=== PATIENT | male | born 1995 | race Native Hawaiian/Other Pacific Islander ===

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

== ENCOUNTER → 2018-01-12 | Outpatient (CLI) | payer OTHER ==
--- NOTE | 2018-01-12 14:12 | XR ---
EXAMINATION TYPE: XR foot limited LT DATE OF EXAM: 01/12/2018 CLINICAL HISTORY: pain;osteomyelitis great toe TECHNIQUE: Frontal, lateral and oblique images of the left foot are obtained. COMPARISON: 02/07/2017. FINDINGS: There is no acute fracture/dislocation evident. The joint spaces appear within normal galvez its. No osseous destruction noted. Soft tissue swelling great toe. IMPRESSION: No radiographic evidence to suggest osteomyelitis at this time. ICD 10 NO FRACTURE, INITIAL EVALUATION
== END | disposition home or self-care (01) ==
LOC: RADXRMAIN 13:41
PROVIDERS: ATTEND Podiatrist
DX: M86.9 Osteomyelitis, unspecified (principal)

== ENCOUNTER 2019-03-10 15:27 | Emergency (ER) | payer OTHER ==
[2019-03-10] MEDS ORDERED: KETOROLAC 30 MG/ML 1 ML VIAL IVP STA (16:27)
[2019-03-10] MEDS ORDERED: SODIUM CHLORIDE 0.9% 1,000 ML IV STA (16:27)
[2019-03-10 17:06] LABS: Appearance,Urine Clear (Clear); Bilirubin,Urine Negative (Negative); Blood,Urine Negative (Negative); Color,Urine Yellow; Glucose,Urine (UA) 4+ (Negative); Ketones,Urine Trace (Negative); Leukocyte Esterase,Urine Negative (Negative); Mucus,Urine Rare /hpf; Nitrite,Urine Negative (Negative); PH, Urine 5.5 (5.0-8.0); Protein,Urine 1+ (Negative); RBC,Urine 1 /hpf (0-5); Squamous Epithelial Cell,Urine <1 /hpf (0-4); Urobilinogen,Urine <2.0 mg/dL (<2.0); WBC,Urine 1 /hpf (0-5)
[2019-03-10 17:11] LABS: ALT 147 U/L (4-49); AST 85 U/L (17-59); African American GFR (CKD) >90 (>60 ml/min/1.73 sqM); Albumin 4.7 g/dL (3.5-5.0); Alkaline Phosphatase 88 U/L (38-126); Amylase 60 U/L (30-110); Anion Gap 10 mmol/L; Blood Urea Nitrogen 12 mg/dL (9-20); Calcium 9.9 mg/dL (8.4-10.2); Carbon Dioxide 22 mmol/L (22-30); Chloride 105 mmol/L (98-107); Glucose 202 mg/dL (74-99); Non-African American GFR(CKD) >90 (>60 ml/min/1.73 sqM); Potassium 4.3 mmol/L (3.5-5.1); Sodium 137 mmol/L (137-145); Total Bilirubin 0.7 mg/dL (0.2-1.3); Total Protein 8.2 g/dL (6.3-8.2)
[2019-03-10 17:17] LABS: Specific Gravity,Urine 1.048 (1.001-1.035)
[2019-03-10 17:40] LABS: Basophils # (A) 0.1 k/uL (0-0.2); Basophils % (A) 1 %; Eosinophils # (A) 0.1 k/uL (0-0.7); Eosinophils % (A) 1 %; HCT 49.1 % (39.0-53.0); HGB 16.7 gm/dL (13.0-17.5); Lymphocytes # (A) 2.5 k/uL (1.0-4.8); Lymphocytes % (A) 26 %; MCH 29.2 pg (25.0-35.0); MCHC 34.1 g/dL (31.0-37.0); MCV 85.8 fL (80.0-100.0); Mean Platelet Volume 7.9; Monocytes # (A) 0.5 k/uL (0-1.0); Monocytes % (A) 5 %; Neutrophils # (A) 6.2 k/uL (1.3-7.7); Neutrophils % (A) 65 %; Platelet Count 290 k/uL (150-450); RBC 5.72 m/uL (4.30-5.90); RDW 12.6 % (11.5-15.5); WBC 9.5 k/uL (3.8-10.6)
--- NOTE | 2019-03-10 18:38 | CT ---
EXAMINATION TYPE: CT abdomen pelvis w con DATE OF EXAM: 03/10/2019 COMPARISON: 12/07/2016 HISTORY: Pt bent over earlier today and felt a pain RLQ, pain increased since CT DLP: 2432 mGycm Automated exposure control for dose reduction was used. CONTRAST: Performed with IV Contrast, patient injected with 100 mL of Isovue 300. Lung bases are clear of infiltrate. There is no pleural effusion. Heart size is normal. There is diffuse fatty infiltration of the liver. Gallbladder appears normal. Spleen appears normal. There is no pancreatic mass. Stomach is intact. There is no adrenal mass. Kidneys show satisfactory contrast opacification. There is no hydronephrosi s. There is tiny appendicolith. Appendix is not dilated. There is no retroperitoneal adenopathy. Bladder distends smoothly. There is no inguinal hernia. There is no free fluid in the pelvis. There i s no mesenteric edema. There is no ascites or free air. There is no sign of a bowel obstruction. Ther e are scattered small pericecal multiple lymph nodes. Lumbar spine is intact. There is no compression fracture. Bony pelvis is intact. There is no evidence of hip dysplasia. IMPRESSION: Fatty infiltration of the liver. No focal liver defect. There is clearing of the large posterior liver lesion compared to old exam. No sign of appendicitis.
--- NOTE | 2019-03-10 18:45 | ED ---
General Adult HPI - General Chief complaint: Abdominal Pain Stated complaint: Abd pain Time Seen by Provider: 03/10/19 16:19 Source: patient, RN notes reviewed Mode of arrival: ambulatory Limitations: no limitations - History of Present Illness Initial comments: 23-year-old male with a past medical history of diabetes, anxiety, migraines presents to the emergency department for a chief complaint of right lower quadrant pain. Patient has had right lower quadrant abdominal pain since this morning. States that when he bent down to pick something up at work.patient denies nausea vomiting diarrhea. Denies fevers or chills. Patient is concerned he may have appendicitis. Patient denies any alleviating or aggravating factors that he has noticed. Patient denies noticing any bulges along his groin.Patient has no other complaints at this time including shortness of breath, chest pain, abdominal pain, nausea or vomiting, headache, or visual changes. - Related Data Home Medications Medication Instructions Recorded Confirmed FLUoxetine HCL [PROzac] 20 mg PO DAILY 10/11/16 10/11/16 Ibuprofen [Motrin] 800 mg PO TID 10/11/16 10/11/16 Ondansetron HCl [Zofran] 8 mg PO Q8H PRN 10/11/16 10/11/16 Allergies Allergy/AdvReac Type Severity Reaction Status Date / Time No Known Allergies Allergy Verified 10/11/16 14:14 Review of Systems ROS Statement: Those systems with pertinent positive or pertinent negative responses have been documented in the HPI. ROS Other: All systems not noted in ROS Statement are negative. Past Medical History Past Medical History: Diabetes Mellitus Additional Past Medical History / Comment(s): migraines History of Any Multi-Drug Resistant Organisms: None Reported Past Surgical History: No Surgical Hx Reported Past Anesthesia/Blood Transfusion Reactions: No Reported Reaction Past Psychological History: Anxiety Smoking Status: Current every day smoker Past Alcohol Use History: Occasional Past Drug Use History: None Reported - Past Family History Father Family Medical History: No Reported History Mother Family Medical History: No Reported History General Exam Limitations: no limitations General appearance: alert, in no apparent distress Head exam: Present: atraumatic, normocephalic, normal inspection Eye exam: Present: normal appearance, PERRL, EOMI. Absent: scleral icterus, conjunctival injection, periorbital swelling ENT exam: Present: normal exam, mucous membranes moist Neck exam: Present: normal inspection, full ROM. Absent: tenderness, meningismus, lymphadenopathy Respiratory exam: Present: normal lung sounds bilaterally. Absent: respiratory distress, wheezes, rales, rhonchi, stridor Cardiovascular Exam: Present: regular rate, normal rhythm, normal heart sounds. Absent: systolic murmur, diastolic murmur, rubs, gallop, clicks GI/Abdominal exam: Present: soft, tenderness (Mild right lower quadrant tenderness. No guarding or rebound.), normal bowel sounds. Absent: distended, guarding, rebound, rigid, hernia (Groin was examined with kaylee Gibbons as branch lending manager. There are no bulges or tenderness.) Expanded GI/Abdominal exam: Absent: heel tap sign Neurological exam: Present: alert Course Vital Signs 03/10/19 15:31 Temperature 98.7 F Pulse Rate 84 Respiratory 18 Rate Blood Pressure 148/78 O2 Sat by Pulse 98 Oximetry Medical Decision Making - Medical Decision Making CBC unremarkable. CMP does show mild hyperglycemia. Patient has a history of diabetes. Mild transaminitis likely secondary to fatty liver. Urinalysis does show 4+ glucose with trace ketones. I suspect ketones are likely secondary to dehydration given normal anion gap and negative acetone. CT abdomen and pelvis shows fatty infiltration of the liver without focal liver deficit. There is clearing of a large posterior liver lesion compared old exam. There is no sign of appendicitis. There is tiny appendicolith. All laboratory and imaging findings were discussed with patient. Patient did have improvement in pain after Toradol. Suspect muscular skeletal component given pain that started with bending. However patient will be given Bentyl and will continue Motrin or Tylenol. He will return here to the emergency department if he has any worsening symptoms which were discussed thoroughly with him. - Lab Data Result diagrams: 03/10/19 16:43 03/10/19 16:43 Lab Results 03/10/19 03/10/19 03/10/19 Range/Units 16:43 16:43 16:43 WBC 9.5 (3.8-10.6) k/uL RBC 5.72 (4.30-5.90) m/uL Hgb 16.7 (13.0-17.5) gm/dL Hct 49.1 (39.0-53.0) % MCV 85.8 (80.0-100.0) fL MCH 29.2 (25.0-35.0) pg MCHC 34.1 (31.0-37.0) g/dL RDW 12.6 (11.5-15.5) % Plt Count 290 (150-450) k/uL Neutrophils % 65 % Lymphocytes % 26 % Monocytes % 5 % Eosinophils % 1 % Basophils % 1 % Neutrophils # 6.2 (1.3-7.7) k/uL Lymphocytes # 2.5 (1.0-4.8) k/uL Monocytes # 0.5 (0-1.0) k/uL Eosinophils # 0.1 (0-0.7) k/uL Basophils # 0.1 (0-0.2) k/uL Sodium 137 (137-145) mmol/L Potassium 4.3 (3.5-5.1) mmol/L Chloride 105 (98-107) mmol/L Carbon Dioxide 22 (22-30) mmol/L Anion Gap 10 mmol/L BUN 12 (9-20) mg/dL Creatinine 0.42 L (0.66-1.25) mg/dL Est GFR (CKD-EPI)AfAm >90 (>60 ml/min/1.73 sqM) Est GFR (CKD-EPI)NonAf >90 (>60 ml/min/1.73 sqM) Glucose 202 H (74-99) mg/dL Calcium 9.9 (8.4-10.2) mg/dL Total Bilirubin 0.7 (0.2-1.3) mg/dL AST 85 H (17-59) U/L ALT 147 H (4-49) U/L Alkaline Phosphatase 88 (38-126) U/L Total Protein 8.2 (6.3-8.2) g/dL Albumin 4.7 (3.5-5.0) g/dL Amylase 60 (30-110) U/L Lipase 114 (23-300) U/L Urine Color Yellow Urine Appearance Clear (Clear) Urine pH 5.5 (5.0-8.0) Ur Specific [place] 1.048 H (1.001-1.035) Urine Protein 1+ H (Negative) Urine Glucose (UA) 4+ H (Negative) Urine Ketones Trace H (Negative) Urine Blood Negative (Negative) Urine Nitrite Negative (Negative) Urine Bilirubin Negative (Negative) Urine Urobilinogen <2.0 (<2.0) mg/dL Ur Leukocyte Esterase Negative (Negative) Urine RBC 1 (0-5) /hpf Urine WBC 1 (0-5) /hpf Ur Squamous Epith Cells <1 (0-4) /hpf Urine Mucus Rare H (None) /hpf Acetone, Qual (Negative) 03/10/19 Range/Units 16:43 WBC (3.8-10.6) k/uL RBC (4.30-5.90) m/uL Hgb (13.0-17.5) gm/dL Hct (39.0-53.0) % MCV (80.0-100.0) fL MCH (25.0-35.0) pg MCHC (31.0-37.0) g/dL RDW (11.5-15.5) % Plt Count (150-450) k/uL Neutrophils % % Lymphocytes % % Monocytes % % Eosinophils % % Basophils % % Neutrophils # (1.3-7.7) k/uL Lymphocytes # (1.0-4.8) k/uL Monocytes # (0-1.0) k/uL Eosinophils # (0-0.7) k/uL Basophils # (0-0.2) k/uL Sodium (137-145) mmol/L Potassium (3.5-5.1) mmol/L Chloride (98-107) mmol/L Carbon Dioxide (22-30) mmol/L Anion Gap mmol/L BUN (9-20) mg/dL Creatinine (0.66-1.25) mg/dL Est GFR (CKD-EPI)AfAm (>60 ml/min/1.73 sqM) Est GFR (CKD-EPI)NonAf (>60 ml/min/1.73 sqM) Glucose (74-99) mg/dL Calcium (8.4-10.2) mg/dL Total Bilirubin (0.2-1.3) mg/dL AST (17-59) U/L ALT (4-49) U/L Alkaline Phosphatase (38-126) U/L Total Protein (6.3-8.2) g/dL Albumin (3.5-5.0) g/dL Amylase (30-110) U/L Lipase (23-300) U/L Urine Color Urine Appearance (Clear) Urine pH (5.0-8.0) Ur Specific [place] (1.001-1.035) Urine Protein (Negative) Urine Glucose (UA) (Negative) Urine Ketones (Negative) Urine Blood (Negative) Urine Nitrite (Negative) Urine Bilirubin (Negative) Urine Urobilinogen (<2.0) mg/dL Ur Leukocyte Esterase (Negative) Urine RBC (0-5) /hpf Urine WBC (0-5) /hpf Ur Squamous Epith Cells (0-4) /hpf Urine Mucus (None) /hpf Acetone, Qual Negative (Negative) Disposition Clinical Impression: Abdominal pain Disposition: HOME SELF-CARE Condition: Good Instructions (If sedation given, give patient instructions): Abdominal Pain (ED) Additional Instructions: Please take Motrin and Tylenol for pain. Take Bentyl as needed. Follow-up with primary care in 1-2 days. Return to the emergency department if you have any worsening symptoms such as worsening pain or fevers. Is patient prescribed a controlled substance at d/c from ED?: No Referrals: Panfilo Cox MD [Primary Care Provider] - 1-2 days Time of Disposition: 19:20
[2019-03-10 20:11] VITALS: BP 137/86; PULSE 89; RESP 19; TEMP 98.3
== END 2019-03-10 20:11 | disposition home or self-care (01) ==
LOC: EC 15:27
DX: R10.31 Right lower quadrant pain (principal); R10.32 Left lower quadrant pain; K76.0 Fatty (change of) liver, not elsewhere classified; K38.1 Appendicular concretions; F41.9 Anxiety disorder, unspecified; F17.200 Nicotine dependence, unspecified, uncomplicated; Z79.899 Other long term (current) drug therapy
CPT/HCPCS: 36415; 80053; 82150; 82009; 83605; 83690; 85025; 81001; 74177; 99284; 96374; 96361; J1885; Q9967

== ENCOUNTER → 2020-03-18 | Outpatient (CLI) | payer OTHER ==
--- NOTE | 2020-03-19 07:40 | XR ---
EXAMINATION TYPE: XR foot complete RT DATE OF EXAM: 03/18/2020 COMPARISON: 02/07/2017 HISTORY: Right ankle pain TECHNIQUE: Three-view right foot FINDINGS: No acute fractures or dislocations are evident. Alignment is normal. Joint spaces are prese rved. Soft tissues are normal. No significant interval changes evident. IMPRESSION: 1. Normal three-view right foot
--- NOTE | 2020-03-19 07:46 | XR ---
EXAMINATION TYPE: XR ankle complete RT DATE OF EXAM: 03/18/2020 COMPARISON: None HISTORY: Pain TECHNIQUE: Three-view right ankle FINDINGS: Ankle mortise is intact. Soft tissues are normal. No acute fractures or dislocations are ev ident. Follow-up exams can be performed 7-10 days from acute trauma for continued pain. IMPRESSION: 1. Normal three-view right ankle.
== END | disposition home or self-care (01) ==
LOC: RADXRMAIN 16:30
PROVIDERS: ATTEND Pediatrics
DX: M25.571 Pain in right ankle and joints of right foot (principal)

== ENCOUNTER 2021-02-07 20:59 | Emergency (ER) | payer OTHER ==
[2021-02-07 22:16] VITALS: TEMP 100.8
[2021-02-07] MEDS ORDERED: IBUPROFEN 600 MG TAB PO STA (23:39)
[2021-02-07] MEDS ORDERED: DEXAMETHASONE SOD PHOSPHATE 10 MG/ML 1 ML VIAL IVP STA (23:39)
[2021-02-07] MEDS ORDERED: ACETAMINOPHEN TAB 325 MG TAB PO STA (23:39)
[2021-02-08] MEDS ORDERED: BAMLANIVIMAB (EUA) 700 MG, ETESEVIMAB (EUA) 1,400 MG in SODIUM CHLORIDE 0.9% 100 ML IVPB ONE (00:30)
[2021-02-08] MEDS ORDERED: SODIUM CHLORIDE 0.9% 50 ML IVPB ONE (00:30)
--- NOTE | 2021-02-08 00:43 | XR ---
EXAMINATION TYPE: XR chest 1V DATE OF EXAM: 02/07/2021 COMPARISON: 10/11/2016 HISTORY: Congestion TECHNIQUE: Single view FINDINGS: There is patchy airspace infiltrates throughout the lungs. There is poor inspiration. Heart and mediastinum are normal. Bony thorax is intact. There is no definite pleural effusion. IMPRESSION: Bilateral multifocal extensive air space pneumonia appears essentially new compared to ol d exam.
--- NOTE | 2021-02-08 00:54 | ED ---
SOB HPI - General Chief Complaint: Shortness of Breath Stated Complaint: MENG, Covid+ Time Seen by Provider: 02/07/21 23:39 Source: patient, RN notes reviewed Mode of arrival: ambulatory - History of Present Illness Initial Comments: Patient is a 25-year-old male that presents to the emergency department complaining of increasing shortness of breath. Patient was diagnosed with Covid recently has been having symptoms for approximately 9 days. Patient Notes been trying at home conservative management with no relief. He came to the emergency department to get evaluated. He denied any chest pain headache nausea vomiting diarrhea constipation fever fatigue chills. - Related Data Home Medications Medication Instructions Recorded Confirmed FLUoxetine HCL [PROzac] 20 mg PO DAILY 10/11/16 10/11/16 Ibuprofen [Motrin] 800 mg PO TID 10/11/16 10/11/16 ondansetron HCL [Zofran] 8 mg PO Q8H PRN 10/11/16 10/11/16 Previous Rx's Medication Instructions Recorded Dicyclomine [Bentyl] 20 mg PO TID PRN #20 tablet 03/10/19 Azithromycin [Zithromax] 500 mg PO DAILY #5 tab 02/08/21 predniSONE 50 mg PO DAILY #5 tab 02/08/21 Allergies Allergy/AdvReac Type Severity Reaction Status Date / Time No Known Allergies Allergy Verified 02/07/21 22:10 Review of Systems ROS Statement: Those systems with pertinent positive or pertinent negative responses have been documented in the HPI. ROS Other: All systems not noted in ROS Statement are negative. Past Medical History Past Medical History: Diabetes Mellitus Additional Past Medical History / Comment(s): migraines History of Any Multi-Drug Resistant Organisms: None Reported Past Surgical History: No Surgical Hx Reported Past Anesthesia/Blood Transfusion Reactions: No Reported Reaction Past Psychological History: Anxiety Smoking Status: Former smoker Past Alcohol Use History: Occasional Past Drug Use History: None Reported - Past Family History Father Family Medical History: No Reported History Mother Family Medical History: No Reported History General Exam General appearance: alert, in no apparent distress, obese Head exam: Present: atraumatic, normocephalic, normal inspection Eye exam: Present: normal appearance, PERRL, EOMI. Absent: scleral icterus, conjunctival injection, periorbital swelling ENT exam: Present: normal exam, mucous membranes moist Neck exam: Present: normal inspection. Absent: tenderness, meningismus, lymphadenopathy Respiratory exam: Present: normal lung sounds bilaterally. Absent: respiratory distress, wheezes, rales, rhonchi, stridor Cardiovascular Exam: Present: regular rate, normal rhythm, normal heart sounds. Absent: systolic murmur, diastolic murmur, rubs, gallop, clicks Extremities exam: Present: normal inspection, full ROM, normal capillary refill. Absent: tenderness, pedal edema, joint swelling, calf tenderness Neurological exam: Present: alert, oriented X3 Psychiatric exam: Present: normal affect, normal mood Skin exam: Present: warm, dry, intact, normal color. Absent: rash Course Vital Signs 02/07/21 22:12 Temperature 100.8 F H Pulse Rate 131 H Respiratory 22 Rate Blood Pressure 142/88 O2 Sat by Pulse 94 L Oximetry Medical Decision Making - Medical Decision Making 25-year-old male Covid positive 9 days does meet criteria for monoclonal advised. 10 mg of Decadron, 600 mg Motrin, 650 mg of Tylenol, chest x-ray ordered. Chest x-ray shows bilateral multifocal pneumonia consistent with Covid pneumonia. Patient is agreeable with discharge home after monoclonal antibody infusion. case discussed with Dr. Watson - Lab Data Lab Results 02/07/21 Range/Units 22:18 Coronavirus (PCR) Detected A (Not Detectd) - Radiology Data Radiology results: report reviewed, image reviewed Chest x-ray: Bilateral multifocal extensive airspace pneumonia. Essentially new compared to old exam. Disposition Clinical Impression: Pneumonia due to COVID-19 virus Disposition: HOME SELF-CARE Condition: Stable Instructions (If sedation given, give patient instructions): Coronavirus Disease 2019 (COVID-19) Additional Instructions: Please return to the Emergency Department if symptoms worsen or any other concerns. Follow-up with primary care 1-2 days. Take prednisone and antibiotic as prescribed. Take vitamin D and vitamin C. Is patient prescribed a controlled substance at d/c from ED?: No Referrals: Panfilo Cox MD [Primary Care Provider] - 1-2 days Time of Disposition: 00:54
[2021-02-08 01:39] VITALS: RESP 18
[2021-02-08 03:10] VITALS: BP 132/85; PULSE 104
== END 2021-02-08 03:10 | disposition home or self-care (01) ==
LOC: EC 20:59
DX: U07.1 COVID-19 (principal); J12.82 Pneumonia due to coronavirus disease 2019; E11.9 Type 2 diabetes mellitus without complications; Z87.891 Personal history of nicotine dependence
CPT/HCPCS: 71045; 87635; 96374; 99285

== ENCOUNTER 2022-02-12 16:07 | Emergency (ER) | payer OTHER ==
[2022-02-12 16:18] VITALS: BP 164/92; PULSE 88; RESP 16; TEMP 96.7
[2022-02-12] MEDS ORDERED: LIDOCAINE 1% INJ 10MG/ML (30 ML VIAL-PF) SQ ONE (17:16)
--- NOTE | 2022-02-12 17:56 | ED ---
General Adult HPI - General Chief complaint: Skin/Abscess/Foreign Body Stated complaint: rt hip skin tag irritation Time Seen by Provider: 02/12/22 16:20 Source: patient, RN notes reviewed Mode of arrival: ambulatory Limitations: no limitations - History of Present Illness Initial comments: Patient is a pleasant 26-year-old male presenting to the emergency department with concern of skin tag on his right hip region. Patient states it is been present for years. Patient states today he noticed it was large. Patient denies any trauma. Patient states it is not painful. No redness. No fever. - Related Data Home Medications Medication Instructions Recorded Confirmed FLUoxetine HCL [PROzac] 20 mg PO DAILY 10/11/16 10/11/16 Ibuprofen [Motrin] 800 mg PO TID 10/11/16 10/11/16 ondansetron HCL [Zofran] 8 mg PO Q8H PRN 10/11/16 10/11/16 Previous Rx's Medication Instructions Recorded Dicyclomine [Bentyl] 20 mg PO TID PRN #20 tablet 03/10/19 Azithromycin [Zithromax] 500 mg PO DAILY #5 tab 02/08/21 predniSONE 50 mg PO DAILY #5 tab 02/08/21 Allergies Allergy/AdvReac Type Severity Reaction Status Date / Time No Known Allergies Allergy Verified 02/12/22 16:17 Review of Systems ROS Statement: Those systems with pertinent positive or pertinent negative responses have been documented in the HPI. ROS Other: All systems not noted in ROS Statement are negative. Constitutional: Denies: fever Eyes: Denies: eye pain ENT: Denies: ear pain Respiratory: Denies: cough Cardiovascular: Denies: chest pain Endocrine: Denies: fatigue Gastrointestinal: Denies: abdominal pain Genitourinary: Denies: urgency Musculoskeletal: Denies: back pain Skin: Reports: as per HPI Neurological: Denies: weakness Past Medical History Past Medical History: Diabetes Mellitus Additional Past Medical History / Comment(s): migraines History of Any Multi-Drug Resistant Organisms: None Reported Past Surgical History: No Surgical Hx Reported Past Anesthesia/Blood Transfusion Reactions: No Reported Reaction Past Psychological History: Anxiety Smoking Status: Former smoker Past Alcohol Use History: Occasional Past Drug Use History: None Reported - Past Family History Father Family Medical History: No Reported History Mother Family Medical History: No Reported History General Exam Limitations: no limitations General appearance: alert, in no apparent distress Head exam: Present: normocephalic Eye exam: Present: normal appearance Neck exam: Present: normal inspection Respiratory exam: Present: normal lung sounds bilaterally Cardiovascular Exam: Present: regular rate, normal rhythm GI/Abdominal exam: Present: soft. Absent: tenderness Extremities exam: Present: normal inspection Neurological exam: Present: alert Psychiatric exam: Present: normal affect, normal mood Skin exam: Present: other (Right lateral hip region with enlarged skin tag, approximately 1 x 2 cm. There is clear fluid involvement in kidney muniz shape. No surrounding erythema. No tenderness.) Course Vital Signs 02/12/22 16:15 Temperature 96.7 F L Pulse Rate 88 Respiratory 16 Rate Blood Pressure 164/92 O2 Sat by Pulse 100 Oximetry Procedures - [place] Protocol (Time Out) Procedure Performed:: Skin tag removal Performing Provider: Alonzo Hollingsworth Timeout Date: 02/12/22 Timeout Time: 15:45 Patient Identification (2 identifiers required): Chart, Verbal, Name Patient/Legal Cash Applications Clerk has Confirmed: Identity, Site, Procedure Site: r hip Site Marked: Yes Site Verified With Patient/Guardian: Yes Final Confirmation: Procedure, Site - Procedures Initial comment: Informed consent given. Patient did give verbal consent. Right hip region was prepped with Betadine. 5 mL 1% lidocaine was infused. Skin tag was encircled with suture. Sarita this skin tag was removed using scissors. There was a small remaining skin deficit, approximately 3-4 mm. Single suture of 4-0 Vicryl was placed. No complications. No bleeding. Skin tag is sent to pathology. Disposition Clinical Impression: Skin tag Disposition: HOME SELF-CARE Condition: Stable Instructions (If sedation given, give patient instructions): Acute Wound Care (ED) Additional Instructions: Please follow-up with primary care physician next week for pathology results and a recheck. Suture removal within 7 days. Twice daily wash area very gently with soap and water, apply antibiotic ointment, and keep bandaged. Return for bleeding, redness, increased pain, fever, worsening symptoms or any other concerns. Is patient prescribed a controlled substance at d/c from ED?: No Referrals: Panflio Cox MD [Primary Care Provider] - 1-2 days Time of Disposition: 17:56
== END 2022-02-12 18:00 | disposition home or self-care (01) ==
LOC: EC 16:07
DX: L91.8 Other hypertrophic disorders of the skin (principal); E11.9 Type 2 diabetes mellitus without complications; F41.9 Anxiety disorder, unspecified; Z87.891 Personal history of nicotine dependence
CPT/HCPCS: 99283; J2001